=== PATIENT | male | born 1990 | race Caucasian/White ===

== ENCOUNTER 2016-07-31 20:57 | Emergency (ER) | payer MEDICAID ==
[~2016-07-31] VITALS: Ht 175.3 cm; Wt 96.8 kg
[~2016-07-31 20:57] MED LIST: CARI3CAP PO; FLUV100T2 PO; PRED20TA PO
[2016-07-31 21:00] VITALS: Ht 175.3 cm; Wt 96.8 kg
--- OUTSIDE RECORDS SUMMARY | 2016-07-31 21:03 | XMS REPORT ---
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
--- OUTSIDE RECORDS SUMMARY | 2016-07-31 21:03 | XMS REPORT | Continuity of Care Document ---
Author Author [facility] Organization [facility] Address Unknown Phone Unavailable Allergies Active Description Code Type Severity Reaction Onset Reported/Identified Relationship to Patient Clinical Status Yes codeine NKMA N/A N/A 07/21/2013 Medications Problems Procedures Results Encounters ACCT No. Visit Date/Time Discharge Status Pt. Type Provider Facility Loc./Unit Complaint [id number] 11/02/2015 12:41:00 2015 23:59:00 DIS Outpatient Yasemin Fine [facility] New FM TCPA new pt to est was Dr Gay [id number] 09/25/2015 13:39:00 2015 23:59:00 DIS Outpatient Nahun Sawyer [facility] New FM coughing has asthma [id number] 06/26/2015 16:54:00 2015 23:59:00 DIS Outpatient Jeffery Cruz [facility] New IC POSS STREP
--- OUTSIDE RECORDS SUMMARY | 2016-07-31 21:03 | XMS REPORT ---
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 Problem Autistic disorder F84.0 Active Problem Attention-deficit hyperactivity disorder, predominantly inattentive type F90.0 Active Assessment Attention-deficit hyperactivity disorder, predominantly inattentive type F90.0 Active Problem Obsessive-compulsive disorder F42 Active Assessment Obsessive-compulsive disorder F42 Active Medications Medication Code System Code Instructions Start Date End Date Status Dosage Fluvoxamine Maleate [facility] [address]-56 100 MG Orally Once a day 1 1 /2 tablets at bedtime Levalbuterol HCl [facility] [address]-49 0.31 MG/3ML Inhalation PRN not defined Vraylar [facility] [address]-41 3mg orally daily with food July 31, 2015 Mar 22, 2017 one capsule ProAir HFA [facility] [address]-25 108 (90 Base) MCG/ACT Inhalation every 4 hrs 2 puffs as needed Flovent Diskus [facility] [address]-04 50 MCG/BLIST Inhalation Twice a day 2 puffs Procedures Procedure Coding System Code Date OFFICE VISIT, EST-MOD. COMPLEXITY (25 MIN) CPT-4 97443 Jan 30, 2016 Vital Signs Date/Time: Jan 30, 2016 Temperature 98.1 F Height 69.75 in Weight 208 lbs Blood Pressure Diastolic 74 mm Hg Blood Pressure Systolic 120 mm Hg Cardiac Monitoring Heart Rate 80 /min BMI 30.06 Index Respiratory Rate 20 /min Results No Known Results Summary Purpose eClinicalWorks Submission
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
[2016-07-31] MEDS ORDERED: NORMAL SALINE 1,000 ML IV ONE (21:15)
[2016-07-31] MEDS ORDERED: ONDANSETRON 4mg/2ml INJECTION IV ONE (21:15)
--- OUTSIDE RECORDS SUMMARY | 2016-07-31 21:34 | XMS REPORT | Continuity of Care Document ---
Author Author [facility] Organization [facility] Address Unknown Phone Unavailable Allergies Active Description Code Type Severity Reaction Onset Reported/Identified Relationship to Patient Clinical Status Yes codeine NKMA N/A N/A 07/21/2013 Medications Problems Procedures Results Encounters ACCT No. Visit Date/Time Discharge Status Pt. Type Provider Facility Loc./Unit Complaint [id number] 11/02/2015 12:41:00 2015 23:59:00 DIS Outpatient Yasemin Fine [facility] New FM TCPA new pt to est was Dr Gay [id number] 09/25/2015 13:39:00 2015 23:59:00 DIS Outpatient Nahun Sawyer [facility] New FM coughing has asthma [id number] 06/26/2015 16:54:00 2015 23:59:00 DIS Outpatient Jeffery Cruz [facility] New IC POSS STREP
--- NOTE | 2016-07-31 22:11 | ERPDOC ---
Departure Disposition Decision Date: July 31, 2016 Disposition Decision Time: 23:04 Disposition: 01 DISCHARGED HOME, SELF-CARE Impression Impression Impression: Primary Impression: Acute gastroenteritis Severity: Moderate Condition: Improved Seen By: Physician only Referrals: CHARITO ZARATE MD (PCP) 1 Day MARITZA JARRETT DO (Family) 1 Day Patient Instructions: Gastroenteritis (ED) Problems/Meds/Labs Reviewed?: Yes Medications reviewed and manag: Yes Follow up care ordered?: Yes Mental Status: Alert, Oriented Scripts Ondansetron (Zofran Odt) 4 Mg Tab.rapdis 4 MG PO Q4HR Y for NAUSEA &/OR VOMITING for 3 Days, #18 TAB 0 Refills Prov: ADELE OSMAN 07/31/16 HPI - Abdominal Pain General Chief Complaint: Nausea,Vomiting,Diarrhea Stated Complaint: VOMITING Time Seen by Provider: 21:05 Source: patient History/Exam Limitations: no limitations HPI - Abdominal Pain Initial Comments 26-year-old male presents to emergency department with a chief complaint of nausea, vomiting, and diarrhea. Patient noted onset of symptoms at approximately noon today. Patient states that roughly 2 days ago he was exposed to a friend with similar ill contacts. Patient denies any pain or discomfort. Patient does note some generalized abdominal cramping without radiation that is mild in nature. He does not note any exacerbating or remitting factors. Patient denies any trauma, travel, poorly prepared food, or recent antibiotic use. Patient denies any blood in emesis or stool. Patient states that he has had "a handful" episodes of nonbloody emesis and one episode of loose stool. No other complaints or associated symptoms. Occurred At: home Onset: Gradual Allergies: Coded Allergies: codeine (Verified Allergy, Unknown, 07/31/16) Past History Past Medical History Pt denies signifigant PMH Psychological: other Surgical History Denies Surgeries Family History Family History: Negative Vaccines Hx Tetanus, Diptheria, Pertuss: Yes Social History Smoking Status: Never smoker Substance Use Type: does not use Alcohol Intake: none Review of Systems Constitutional Constitutional: DENIES: chills, fever Eyes General: DENIES: erythema, exudate Lids/Accessories: DENIES: erythema, swelling Vision: DENIES: acuity, blurring ENMT Ears: DENIES: drainage, erythema Hearing: DENIES: hearing loss Balance: DENIES: ataxia, falling to one side Sinuses: DENIES: congestion, pain Nose: DENIES: nosebleeds, pain Mouth/Throat: DENIES: painful swallowing, sore throat Teeth: DENIES: pain Jaw: DENIES: pain Cardiovascular Cardiac: DENIES: chest pain, dyspnea on exertion Rhythm/Rate: DENIES: irregular beat, palpitations Vascular: DENIES: pedal edema, unilateral swelling Pulmonary Respiratory: DENIES: cough, dyspnea, pleuritic chest pain, sputum GI Upper Abdomen: nausea, vomiting, DENIES: pain Lower Abdomen: diarrhea, DENIES: pain General: DENIES: burning, dysuria, frequency, urgency Musculoskeletal General: DENIES: joint pain, pain, tenderness Integumentary Skin: DENIES: itching, rash Neurological General: DENIES: headache, numbness, weakness Psychiatric Psychiatric: DENIES: emotional instability, suicidal ideation/attempt Endocrine Endocrine: DENIES: polydipsia, polyphagia Hematologic/Lymphatic Hematologic/Lymphatic: DENIES: frequent nosebleeds, lymphadenopathy Allergic/Immunological Allergic/Immunoligical: DENIES: allergic reactions, hives Physical Exam General General Nourishment: well nourished, well developed, appears stated age, no acute distress, adult General Body Habitus: well groomed Vitals and Pain First Documented Vital Signs Date Time Temp Pulse Resp B/P Pulse Ox O2 Delivery O2 Flow Rate FiO2 07/31/16 21:00 98.3 76 14 119/57 95 Room Air Weight: Kilograms: 96.800 Height (feet): 5 Height (inches): 9.00 Triage Pain Scale: RN VS reviewed by Provider: Yes Normal Exams: Head: Normocephalic w/o trauma Eyes: Pupils are PERRLA w/ EOMI, No scleral icterus, irritation, or foreign bodies noted ENMT: No facial trauma, nasal exudates, pharyngeal erythema, or exudates are noted Dental: No fractured, loose, or missing teeth noted Neck: Full range of motion, without adenopathy, JVD, bruits or thyromegaly Chest/Resp: Clear all heredia, with good airflow, and symmetry bilaterally CV: Regular rate and rhythm, without murmur or gallop, Pulses 2+ all extremities, capillary refill, <2 seconds all ext., no pedal edema noted Abdomen: Bowel sounds positive, soft, non-tender, non-distended, no hepatosplenomegaly, masses or bruits noted Lymphatic: No lymphadenopathy, or lymphedema noted Musculoskeletal: No tenderness, or deformity noted, good range of motion, all extremities Integumentary: No rashes, hives, or bruising noted, hair and nails, without abnormality Neurologic: Patient is alert, and oriented, cranial nerves, motor/sensory/ cerebellar, exams w/o gross deficits, to observation Psychiatric: Patient exhibits, appropriate attention, emotion and affect Abdomen (brief) Comments NO CVAT. Differential Diagnoses Considering: Dehydration, Food Poisoning, Gastroenteritis, Hypokalemia Progress Results/Orders Orders Procedure Category Date Status Time Iv Lock (Nursing) DANIELLE 07/31/16 In Process 21:15 Bmp - Basic Metabolic LAB 07/31/16 Complete Panel Normal Saline (Normal PHA 07/31/16 Complete Saline Iv) 21:15 Ondansetron Inj PHA 07/31/16 Complete (Zofran) 21:15 Promethazine PHA 07/31/16 Complete (Phenergan) 23:15 Ondansetron Odt PHA 07/31/16 Complete (Prepack) (Zofran Odt 23:15 Lab Results Laboratory Tests Test 07/31/16 21:30 Turbidity < 20 Sodium Level 146MEQ/L Potassium Level 3.8MEQ/L Chloride Level 106MEQ/L Carbon Dioxide Level 23MEQ/L Anion Gap 17MEQ/L Blood Urea Nitrogen 13.0MG/DL Creatinine 0.9MG/DL Glomerular Filtration Rate Calc 104 BUN/Creatinine Ratio 14RATIO Glucose Level 104MG/DL Calculated Osmolality 281MOSM/KG Calcium Level 9.5MG/DL Icterus Index < 2 Chemistry Specimen Hemolysis 21 Medications Current ED Medications Sodium Chloride (Normal Saline IV) 1,000 ml @ 999 mls/hr Q1H1M ONCE IV Last administered on 07/31/16 21:35; Start 07/31/16 at 21:15; Stop 07/31/16 at 22:15 ; Status DC Ondansetron HCl (Zofran) 4 mg O ONCE IV Last administered on 07/31/16 21:35; Start 07/31/16 at 21:15; Stop 07/31/16 at 21:17; Status DC Promethazine HCl (Phenergan) 25 mg O ONCE IM Last administered on 07/31/16 23 :33; Start 07/31/16 at 23:15; Stop 07/31/16 at 23:16; Status DC Ondansetron HCl (ZOFRAN ODT (PrePack)) 1 pack O ONCE SENT HOME Last administered on 07/31/16t 23:33; Start 07/31/16 at 23:15; Stop 07/31/16 at 23:16 ; Status DC Progress Progress Labs are discussed in detail with the patient and questions are answered. Patient is given 1 L normal saline intravenously. Patient is given antiemetic medications with improvement of symptoms. Patient is discharged home in improved condition. He is to follow up as instructed. Patient is to return to the emergency Department if his condition worsens or changes in any manner. Patient is provided with a prepack of Zofran ODT. He is to return to the emergency department if his condition worsens or changes in any manner. Patient is in agreement with the current plan of management. ADELE OSMAN DO July 31, 2016 22:11
[2016-07-31 22:38] LABS: ANION GAP 17 MEQ/L (5-15); BUN/CREATININE RATIO 14 RATIO (6-26); CALCIUM 9.5 MG/DL (8.4-10.2); CHLORIDE 106 MEQ/L (98-107); CO2 - CARBON DIOXIDE 23 MEQ/L (22-30); CREATININE 0.9 MG/DL (0.8-1.5); GLOMERULAR FILTRATION RATE 104; GLUCOSE 104 MG/DL (75-110); POTASSIUM 3.8 MEQ/L (3.6-5); SODIUM 146 MEQ/L (134-144)
[2016-07-31] MEDS ORDERED: ONDA4TAB7 PO (23:05)
[2016-07-31] MEDS ORDERED: PROMETHAZINE 25 MG INJECTION IM ONE (23:15)
[2016-07-31] MEDS ORDERED: ONDANSETRON ODT 4mg #3 (PrePack) SENT HOME ONE (23:15)
[2016-07-31 23:55] VITALS: BP 114/55; PULSE 69; RESP 18; TEMP 98.3; O2SAT 97
--- NOTE | 2016-07-31 23:55 | NUR ---
DEPART PT IS GIVEN DISMISSAL INSTRUCTIONS WITH VERBAL UNDERSTANDING. PT IS GIVEN SCRIPT. PT LEAVES AMBULATORY TO REGISTRAION DESK
== END 2016-07-31 23:55 | disposition home or self-care (01) ==
LOC: ED 20:57
DX: K52.9 Noninfective gastroenteritis and colitis, unspecified (principal)
CPT/HCPCS: 80048; 96361; 96372; 96374; 99284; J2405; J2550; J7030